=== PATIENT | male | born 2000 | race Hispanic/Latino ===

== ENCOUNTER 2022-03-02 07:29 | Emergency (ER) | payer SELFPAY ==
[2022-03-02] MEDS ORDERED: Ondansetron PF 4 MG/2 ML Vial ONE ×2 (07:50→09:24)
[2022-03-02 08:22] LABS: #Basophils 0.1 thou/uL (0.0-0.2); #Eosinphils 0.1 thou/uL (0.0-0.7); #Lymphocytes 1.6 thou/uL (1.20-3.40); #Monocytes 0.3 thou/uL (0.11-0.59); #Neutrophils 11.2 thou/uL (1.40-6.50); %Basophils 0.5 % (0.0-1.0); %Eosinophils 0.8 % (0.0-10.0); %Lymphocytes 11.9 % (21.0-51.0); %Monocytes 2.3 % (0.0-10.0); %Neutrophils 84.5 % (42.0-75.0); Hemoglobin 15.8 g/dL (14.0-18.0); Mean Corpuscular HGB CONC 32.8 g/dL (32.0-36.0); Mean Corpuscular Hemoglobin 28.9 pg (27.0-31.0); Mean Platelet Volume 7.2 fL (7.4-10.4); Platelet Count 367 thou/uL (130-400); Red Blood Cell (RBC) Count 5.48 mill/uL (4.70-6.10); White Blood Cell (WBC) Count 13.2 thou/uL (4.8-10.8)
[2022-03-02 08:45] LABS: ALT (SGPT) 33 U/L (8-55); AST (SGOT) 22 U/L (5-34); Albumin 4.4 g/dL (3.5-5.0); Alkaline Phosphatase 78 U/L (40-110); Anion Gap 13 mmol/L (10-20); BUN (Urea Nitrogen) 15 mg/dL (8.9-20.6); Bilirubin, Total 0.4 mg/dL (0.2-1.2); Calc. Creatinine Clearance 0 mL/min (70-130); Carbon Dioxide 24 mmol/L (22-29); Chloride 106 mmol/L (98-107); Globulin 3.2 g/dL (2.4-3.5); Glucose 132 mg/dL (70-105); Lipase 37 U/L (8-78); Potassium 3.6 mmol/L (3.5-5.1); Protein, Total 7.6 g/dL (6.0-8.3); Sodium 139 mmol/L (136-145)
[2022-03-02] MEDS ORDERED: Pantoprazole 40 MG VIAL ONE (09:24)
[2022-03-02] MEDS ORDERED: Metoclopramide HCl 10 MG/2 ML VIAL ONE (09:24)
[2022-03-02] MEDS ORDERED: Dicyclomine 20 MG/2 ML VIAL ONE (09:24)
[2022-03-02] MEDS ORDERED: Iopamidol-370 76% 500 ML 1 ML ONE (10:37)
[2022-03-02] MEDS ORDERED: Lorazepam 2 MG/ML VIAL ONE (11:35)
[2022-03-02] MEDS ORDERED: Aspirin Chewable 81 MG TAB ONE (11:36)
[2022-03-02] MEDS ORDERED: Nitroglycerin 2% Ointment 1 INCH/1 GM Packet ONE (11:36)
[2022-03-02] MEDS ORDERED: Nitroglycerin 0.4 MG TAB 1 EACH ONE (11:36)
== END 2022-03-02 16:19 | disposition home or self-care (01) ==
LOC: ERS 07:29
DX: K80.20 Calculus of gallbladder without cholecystitis without obstruction (principal)
CPT/HCPCS: 74177; 76705; 80053; 83690; 85025; 96365; 96372; 96375; C9113; J0500; J2060; J2405; J2765; Q9967